=== PATIENT | female | born 1945 | race Caucasian/White ===

== ENCOUNTER 2022-09-10 12:11 | Day surgery (SDC) | payer OTHER ==
[~2022-09-10] VITALS: Ht 165.1 cm; Wt 72.1 kg
[~2022-09-10 12:11] MED LIST: ASPI81CH; CYAN500; Sleep Aid25 M1; UBID10
[2022-09-10] MEDS ORDERED: ATORVASTATIN CA20 MG PO (12:43)
[2022-09-10] MEDS ORDERED: Hair, Skin & N1 EACH PO (12:44)
--- NOTE | 2022-09-10 12:50 | NUR ---
09/10/22 1250 Lizbeth Plascencia 1 DROP OF TETRACAINE ADMINISTERED TO THE R EYE AT 1243, PLEDGET PLACED IN R EYE AT 1245
[2022-09-10 14:05] VITALS: BP 131/72
== END 2022-09-10 14:19 | disposition home or self-care (01) ==
LOC: ORSCSDS 12:11
PROVIDERS: Ophthalmology
PROC: 08RJ3JZ Replacement of Right Lens with Synthetic Substitute, Percutaneous Approach (ICD-10-PCS; principal; 2022-09-10 13:30)
DX: H25.13 Age-related nuclear cataract, bilateral (principal); E78.5 Hyperlipidemia, unspecified; Z79.899 Other long term (current) drug therapy; Z79.82 Long term (current) use of aspirin
CPT/HCPCS: J2250; J3010; J3301; J7040; V2632

== ENCOUNTER 2024-06-27 06:54 | Day surgery (SDC) | payer OTHER ==
[~2024-06-27] VITALS: Ht 165.1 cm; Wt 67.9 kg
[~2024-06-27 06:54] MED LIST changes: +ATORVASTATIN CA20 MG PO; +Hair, Skin & N1 EACH PO
[2024-06-27] MEDS ORDERED: Aspir 8181 MG (07:47)
[2024-06-27] MEDS ORDERED: Vitamin D1000 UNI1 (07:47)
[2024-06-27] MEDS ORDERED: propofoL 50 ML IV ONE (08:00)
[2024-06-27] MEDS ORDERED: Lactated Ringer's 1,000 ML IV ONE ×2 (08:00→08:23)
[2024-06-27 09:26] VITALS: BP 101/65
== END 2024-06-27 09:31 | disposition home or self-care (01) ==
LOC: ORSCSDS 06:54
PROVIDERS: Surgery
PROC: 0DBK8ZX Excision of Ascending Colon, Via Natural or Artificial Opening Endoscopic, Diagnostic (ICD-10-PCS; principal; 2024-06-27 08:30)
DX: Z12.11 Encounter for screening for malignant neoplasm of colon (principal); Z86.0101 Personal history of adenomatous and serrated colon polyps; D12.4 Benign neoplasm of descending colon; E11.9 Type 2 diabetes mellitus without complications; E78.5 Hyperlipidemia, unspecified; I10 Essential (primary) hypertension; Z79.82 Long term (current) use of aspirin
CPT/HCPCS: 82947; 88305; J2704; J7120